=== PATIENT | male | born 1960 | race American Indian/Alaskan Native ===

== ENCOUNTER 2021-09-22 09:50 | Outpatient (CLI) | payer BC | END 2021-09-22 09:51 | disposition home or self-care (01) | LOC: LAB 09:50 | PROVIDERS: ATTEND Internal Medicine | DX: E78.5 Hyperlipidemia, unspecified (principal); E11.65 Type 2 diabetes mellitus with hyperglycemia | CPT/HCPCS: 36415; 83036 ==

== ENCOUNTER 2022-01-30 11:11 | Observation (INO) | payer BC ==
[2022-01-30] MEDS ORDERED: NITROGLYCERIN 0.4 MG TAB SUBL SL ONE (11:50)
[2022-01-30] MEDS: NITROGLYCERIN 0.4 MG TAB SUBL SL SCH ×3 (11:57→13:17)
[2022-01-30] MEDS ORDERED: ASPIRIN 325 MG TAB PO SCH (12:00)
[2022-01-30 12:01] LABS: Basophils % (Auto) 0.4 % (0.0-1.8); Eosinophils # (Auto) 0.2 K/mm3 (0.0-0.4); Eosinophils % (Auto) 1.7 % (0.0-4.3); Hemoglobin 12.9 gm/dl (11.8-15.2); Lymphocytes # (Auto) 0.8 K/mm3 (1.2-5.4); Lymphocytes % (Auto) 6.5 % (13.4-35.0); Mean Corpuscular HGB Conc 33 % (32-34); Mean Corpuscular Volume 78 fl (84-94); Monocytes # (Auto) 1.6 K/mm3 (0.0-0.8); Monocytes % (Auto) 13.6 % (0.0-7.3); Platelet Count 228 K/mm3 (140-440); Red Blood Count 4.99 M/mm3 (3.65-5.03); Red Cell Distribution Width 14.8 % (13.2-15.2)
--- NOTE | 2022-01-30 12:10 | XRay Report ---
CHEST 1 VIEW 01/30/2022 10:45 AM INDICATION / CLINICAL INFORMATION: Chest Pain. COMPARISON: None available. FINDINGS: SUPPORT DEVICES: None. HEART / MEDIASTINUM: No significant abnormality. LUNGS / PLEURA: No significant pulmonary or pleural abnormality. No pneumothorax. ADDITIONAL FINDINGS: No significant additional findings. IMPRESSION: 1. No acute findings. Signer Name: Chris Garcia MD Signed: 01/30/2022 11:53 AM Workstation Name: [id number]
[2022-01-30 12:18] LABS: INR 1.03 (0.87-1.13)
[2022-01-30 12:22] LABS: Alanine Aminotransferase 24 units/L (7-56); Albumin 4.3 g/dL (3.9-5); BUN/Creatinine Ratio 12; Blood Urea Nitrogen 18 mg/dL (9-20); Calcium 9.4 mg/dL (8.4-10.2); Hemolysis Index 8
[2022-01-30] MEDS ORDERED: POTASSIUM CHLORIDE ER 20 MEQ TAB PO ONE (12:26)
--- NOTE | 2022-01-30 12:40 | Emergency Department Report ---
ED Chest Pain HPI - General Stated Complaint: CHEST PAIN Time Seen by Provider: 01/30/22 11:23 Source: patient Mode of arrival: Ambulatory Limitations: No Limitations - History of Present Illness Initial Comments: 61-year-old male with a past medical history of obesity, hypertension, and type 2 diabetes presents to the hospital complaints of chest pain and fatigue since waking up this morning. Pain was initially moderate and intermittent left-sided chest with radiation to the left upper arm. Pain then became more persistent with increased fatigue and inability to concentrate while working. Patient denies nausea, vomiting, diaphoresis, or shortness of breath. He also denies history of PE/DVT, calf tenderness, leg edema, or recent travel. Been compliant with medications. He denies elevated cholesterol, smoking, or family history of CAD before age 65. Patient/stress test was greater than 10 years ago. 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 PMD: Dr. Mann Patient states his current medications include nifedipine and metformin - Related Data Allergies Allergy/AdvReac Type Severity Reaction Status Date / Time No Known Allergies Allergy Verified 01/30/22 11:46 Heart Score - HEART Score History: Moderately suspicious EKG: Non-specific Age: 45-65 Risk factors: > 3 risk factors or hx of atherosclerotic disease Troponin: < normal limit HEART Score: 5 - EKG Read Time Time EKG Completed: 11:17 EKG Read Time: 11:21 ED Review of Systems ROS: Stated complaint: CHEST PAIN Other details as noted in HPI ED Past Medical Hx - Past Medical History Previous Medical History?: Yes Hx Hypertension: Yes - Social History Smoking Status: Never Smoker Substance Use Type: None ED Course Vital Signs 01/30/22 01/30/22 01/30/22 11:39 11:57 12:03 Temperature 99.6 F Pulse Rate 73 90 90 Respiratory 18 Rate Blood Pressure 180/90 170/90 O2 Sat by Pulse 96 Oximetry - Reevaluation(s) Reevaluation #1: 01/30/22 12:31 Patient was treated with nitroglycerin and reports his pain decreased to 0 after receiving 2 sublingual nitroglycerin 01/30/22 13:11 pt updated regarding results, plan for cardiology consultation, and admission. He is currently pain-free - Consultations Consultation #1: 01/30/22 13:05 Case evelio Gooden NP with [facility], will consult SHARMILA score - Sharmila Score Age > 65: (0) No Aspirin use within the Past 7 Days: (0) No 3 or more CAD Risk Factors: (1) Yes 2 or more Angina events in past 24 hrs: (1) Yes Known CAD with more than 50% Stenosis: (0) No Elevated Cardiac Markers: (0) No ST Deviation Greater than 0.5mm: (0) No SHARMILA Score: 2 ED Medical Decision Making - Lab Data Result diagrams: 01/30/22 11:41 01/30/22 11:41 Lab Results 01/30/22 01/30/22 01/30/22 Range/Units 11:41 11:41 11:41 WBC 11.7 H (4.5-11.0) K/mm3 RBC 4.99 (3.65-5.03) M/mm3 Hgb 12.9 (11.8-15.2) gm/dl Hct 39.0 (35.5-45.6) % MCV 78 L (84-94) fl MCH 26 L (28-32) pg MCHC 33 (32-34) % RDW 14.8 (13.2-15.2) % Plt Count 228 (140-440) K/mm3 Lymph % (Auto) 6.5 L (13.4-35.0) % [place] % (Auto) 13.6 H (0.0-7.3) % Eos % (Auto) 1.7 (0.0-4.3) % Baso % (Auto) 0.4 (0.0-1.8) % Lymph # (Auto) 0.8 L (1.2-5.4) K/mm3 [place] # (Auto) 1.6 H (0.0-0.8) K/mm3 Eos # (Auto) 0.2 (0.0-0.4) K/mm3 Baso # (Auto) 0.0 (0.0-0.1) K/mm3 Seg Neutrophils % 77.8 H (40.0-70.0) % Seg Neutrophils # 9.1 H (1.8-7.7) K/mm3 PT 14.6 (12.2-14.9) Sec. INR 1.03 (0.87-1.13) APTT 30.0 (24.2-36.6) Sec. Sodium 143 (137-145) mmol/L Potassium 3.1 L (3.6-5.0) mmol/L Chloride 104.9 (98-107) mmol/L Carbon Dioxide 25 (22-30) mmol/L Anion Gap 16 mmol/L BUN 18 (9-20) mg/dL Creatinine 1.5 H (0.8-1.3) mg/dL Estimated GFR 58 ml/min BUN/Creatinine Ratio 12 % Glucose 194 H (75-100) mg/dL Calcium 9.4 (8.4-10.2) mg/dL Total Bilirubin 0.40 (0.1-1.2) mg/dL AST 24 (5-40) units/L ALT 24 (7-56) units/L Alkaline Phosphatase 95 (35-129) units/L Troponin T < 0.010 (0.00-0.029) ng/mL Total Protein 8.1 (6.3-8.2) g/dL Albumin 4.3 (3.9-5) g/dL Albumin/Globulin Ratio 1.1 % - EKG Data -: EKG Interpreted by Me (Previous inferior infarct) EKG shows normal: sinus rhythm, intervals (Prolonged TX interval 207), ST-T waves (Lateral T wave inversions) - EKG Data When compared to previous EKG there are: previous EKG unavailable - Radiology Data Radiology results: report reviewed CHEST 1 VIEW 01/30/2022 10:45 AM INDICATION / CLINICAL INFORMATION: Chest Pain. COMPARISON: None available. FINDINGS: SUPPORT DEVICES: None. HEART / MEDIASTINUM: No significant abnormality. LUNGS / PLEURA: No significant pulmonary or pleural abnormality. No pn eumothorax. ADDITIONAL FINDINGS: No significant additional findings. IMPRESSION: 1. No acute findings. - Medical Decision Making 61-year-old male presents to the hospital with several cardiac risk factors, chest pain, and abnormal EKG without previous for comparison. Pain relieved after aspirin and nitroglycerin x2. Troponin negative. Patient has not r eceived a stress test in greater than 10 years and has a heart score of 5. P.o. potassium provided for mild hypokalemia. Mild renal insufficiency noted. Case discussed with on-call psychiatric social worker with [facility] (pt to be evaluated by cards in ED) and patient will be admitted to the hospital for further cardiac evaluation. Critical Care Time: Yes Critical care time in (mins) excluding proc time.: 35 Critical care attestation.: If time is entered above; I have spent that time in minutes in the direct care of this critically ill patient, excluding procedure time. Critical Care Time: 35 Minutes of critical care time excluding procedures were used in the care of the patient. I came immediately to the bedside upon patient's arrival. = I discussed treatment plan with the nursing team members. I reviewed electronic record. Patient required multiple interventions and reassessments. Spoke with hospitalist and consultants for collaborative care ED Disposition Clinical Impression: Chest pain, HTN (hypertension), Diabetes, Hypokalemia, Renal insufficiency Disposition: 09 ADMITTED INPATIENT Is pt being admited?: Yes Does the pt Need Aspirin: Yes Condition: Stable Instructions: Diabetes Mellitus Type 2 in Adults (ED), Hypertension (ED) Referrals: PRIMARY CARE, [Primary Care Provider] - 3-5 Days Time of Disposition: 13:14
[2022-01-30] MEDS ORDERED: ACETAMINOPHEN 325 MG TAB PO PRN ×2 (13:15→19:12)
[2022-01-30] MEDS ORDERED: MORPHINE 2 MG/1 ML INJ IV PRN (13:15)
[2022-01-30] MEDS ORDERED: ONDANSETRON 4 MG/2 ML INJ IV PRN ×2 (13:15→19:12)
--- NOTE | 2022-01-30 15:32 | Consultation ---
History of Present Illness Consult date: 01/30/22 Requesting physician: SALLIE STORM History of present illness: Patient is a 61-year-old male with a past medical history of hypertension, diabetes, obesity, and obstructive sleep apnea who presents today with complaint of chest pain which started this morning. Patient reports that he woke up today and had left-sided intermittent chest pain which worsened as the day went on. Patient reports to the chest pain radiated to his left arm that was associated with shortness of breath and dyspnea on exertion which prompted him to be evaluated in the ED. Patient described the pain as a dull ache that was worsened with exertion and relieved after receiving nitroglycerin x2. Patient also reports bilateral lower extremity edema. Patient denies nausea, vomiting, diaphoresis, orthopnea, lightheadedness or palpitations. Patient is previously unknown to our practice. Cardiology is consulted for chest pain. Past History Past Medical History: diabetes, hypertension, hyperlipidemia, other (REDDY) Past Surgical History: Other (Eye surgery) Social history: Family history: cancer, diabetes Medications and Allergies Allergies Allergy/AdvReac Type Severity Reaction Status Date / Time No Known Allergies Allergy Verified 01/30/22 11:46 Active Meds: Active Medications Acetaminophen (Acetaminophen 325 Mg Tab) 650 mg PO Q4H PRN PRN Reason: Pain MILD(1-3)/Fever >100.5/ASIF Aspirin (Aspirin 81 Mg Tab Chew) 81 mg PO QDAY [facility] Atorvastatin Calcium (Atorvastatin 40 Mg Tab) 40 mg PO QHS СВЕТЛАНА Hydralazine HCl (Hydralazine 25 Mg Tab) 25 mg PO Q8HR СВЕТЛАНА Metoprolol Tartrate (Metoprolol Tartrate 50 Mg Tab) 50 mg PO BID СВЕТЛАНА Morphine Sulfate (Morphine 2 Mg/1 Ml Inj) 2 mg IV Q4H PRN PRN Reason: Pain, Moderate (4-6) Nifedipine (Nifedipine Xl 30 Mg Tab) 30 mg PO DAILY [facility]ТЛАНА Ondansetron HCl (Ondansetron 4 Mg/2 Ml Inj) 4 mg IV Q8H PRN PRN Reason: Nausea And Vomiting Sodium Chloride (Sodium Chloride 0.9% 10 Ml Flush Syringe) 10 ml IV BID СВЕТЛАНА Sodium Chloride (Sodium Chloride 0.9% 10 Ml Flush Syringe) 10 ml IV PRN PRN PRN Reason: LINE FLUSH Review of Systems Constitutional: no weight loss, no weight gain, no fever, no chills Ears, nose, mouth and throat: no sinus pressure, no sinus pain Cardiovascular: chest pain, shortness of breath, dyspnea on exertion, no orthopnea Respiratory: shortness of breath, dyspnea on exertion Gastrointestinal: no abdominal pain, no nausea, no vomiting Musculoskeletal: no neck stiffness, no neck pain Integumentary: no rash, no pruritis, no redness Neurological: no head injury, no transient paralysis Psychiatric: no anxiety, no memory loss Physical Examination Vital Signs Temp Pulse Resp Pulse Ox 99.6 F 73 18 96 01/30/22 11:39 01/30/22 11:39 01/30/22 11:39 01/30/22 11:39 General appearance: no acute distress HEENT: Positive: Normocephaly Neck: Positive: trachea midline Cardiac: Positive: Reg Rate and Rhythm Lungs: Positive: Normal Breath Sounds Neuro: Positive: Grossly Intact Abdomen: Positive: Soft, Active Bowel Sounds Skin: Negative: Rash, Suspicious Lesions, Ulceration Extremities: Present: upper extr. pulses, edema Results 01/30/22 11:41 01/30/22 11:41 Cardiac Enzymes 01/30/22 Range/Units 11:41 AST 24 (5-40) units/L Coagulation 01/30/22 Range/Units 11:41 PT 14.6 (12.2-14.9) Sec. INR 1.03 (0.87-1.13) APTT 30.0 (24.2-36.6) Sec. CBC 01/30/22 Range/Units 11:41 WBC 11.7 H (4.5-11.0) K/mm3 RBC 4.99 (3.65-5.03) M/mm3 Hgb 12.9 (11.8-15.2) gm/dl Hct 39.0 (35.5-45.6) % Plt Count 228 (140-440) K/mm3 Lymph # (Auto) 0.8 L (1.2-5.4) K/mm3 [place] # (Auto) 1.6 H (0.0-0.8) K/mm3 Eos # (Auto) 0.2 (0.0-0.4) K/mm3 Baso # (Auto) 0.0 (0.0-0.1) K/mm3 Comprehensive Metabolic Panel 01/30/22 Range/Units 11:41 Sodium 143 (137-145) mmol/L Potassium 3.1 L (3.6-5.0) mmol/L Chloride 104.9 (98-107) mmol/L Carbon Dioxide 25 (22-30) mmol/L BUN 18 (9-20) mg/dL Creatinine 1.5 H (0.8-1.3) mg/dL Glucose 194 H (75-100) mg/dL Calcium 9.4 (8.4-10.2) mg/dL AST 24 (5-40) units/L ALT 24 (7-56) units/L Alkaline Phosphatase 95 (35-129) units/L Total Protein 8.1 (6.3-8.2) g/dL Albumin 4.3 (3.9-5) g/dL - Imaging and Cardiology Echo: pending EKG interpretations - Telemetry EKG Rhythm: Sinus Rhythm - EKG Sinus rhythms and dysrhythmias: sinus rhythm Repolarization changes or abnormalities: nonspecific abnormality, ST segment, and/or T wave Assessment and Plan Patient is a 61-year-old male with a past medical history of hypertension, diabetes, obesity, and obstructive sleep apnea who presents today with complaint of chest pain which started this morning. Chest pain MAGI Hypertension Diabetes Obesity REDDY Reported outpatient medications: Nifedipine 30 mg p.o. daily, atorvastatin, valsartan 320 mg p.o. daily, hydrochlorothiazide 25 mg p.o. daily Plan: EKG shows sinus rhythm 84 with nonspecific IVCD and nonspecific T abnormalities. Troponin negative x2. Repeat cardiac enzymes pending. Patient currently chest pain-free at time of interview Will plan for stress test in the a.m. Patient to be n.p.o. after midnight Will initiate metoprolol 50 mg p.o. twice daily, aspirin, Lipitor Patient is hypertensive will initiate hydralazine 25 mg p.o. 3 times daily and resume outpatient nifedipine 30 mg p.o. daily Patient noted to have elevated creatinine. Patient denies any history of CKD. Will hold nephrotoxic agents including NATALYA or ARB or diuretics Primary team may wish to consider nephrology consult due to elevated creatinine if current renal function does not improve CXR negative however patient reports shortness of breath, bilateral lower extremity, and dyspnea on exertion. BNP pending Echo pending Plan of care discussed with patient and patient's who is at bedside. Patient and verbalized understanding and acknowledgment Patient seen in conjunction with Dr. Valdez who agrees with this plan of care - Patient Problems (1) REDDY (obstructive sleep apnea) Current Visit: Yes Status: Acute (2) Chest pain Current Visit: Yes Status: Acute (3) Diabetes Current Visit: Yes Status: Acute (4) HTN (hypertension) Current Visit: Yes Status: Acute (5) Hypokalemia Current Visit: Yes Status: Acute (6) Renal insufficiency Current Visit: Yes Status: Acute
[2022-01-30] MEDS: hydrALAZINE 25 MG TAB PO SCH ×2 (16:51→22:13)
[2022-01-30] MEDS: METOPROLOL TARTRATE 50 MG TAB PO SCH ×2 (16:51→22:13)
[2022-01-30] MEDS ORDERED: POTASSIUM CHLORIDE ER 20 MEQ TAB PO SCH (19:10)
[2022-01-30] MEDS ORDERED: METOCLOPRAMIDE 10 MG/2 ML INJ IV PRN (19:12)
[2022-01-30] MEDS ORDERED: HYDROmorphone 0.5 MG/0.5 ML INJ IV PRN (19:12)
[2022-01-30] MEDS ORDERED: oxyCODONE /ACETAMINOPHEN 5-325MG TAB PO PRN (19:12)
--- NOTE | 2022-01-30 19:12 | History and Physical Report ---
History of Present Illness Date of examination: 01/30/22 Date of admission: 01/30/22 13:15 Chief complaint: Chest pain since a.m. History of present illness: 41-year-old man with a history of hypertension and type 2 diabetes comes in for chest pain since a.m. Chest pain moderate and intermittent with radiation to the left upper extremity. No nausea vomiting or diaphoresis or shortness of breath. No palpitations. No exacerbating or relieving factors. Chest pain is about 6 on a scale of 1-10. - Past Medical History --Previous Medical History?: Yes --Hypertension: Yes -Past surgical history --No - Family history -- Htn - Social History --Smoking Status: Never Smoker --Substance Use Type: None Review of Systems ROS: Constitutional no weight loss or weight gain no fever or chills HEENT no sore throat no post nasal drip no diplopia Neck no neck stiffness no lymph gland enlargement Chest and lungs no shortness of breath cough or wheezing CVS chest pain since a.m. GI no nausea no vomiting no diarrhea Genitourinary system no dysuria no flank pain Musculoskeletal system no muscle pains no joint pains [employer] no syncope no seizures Skin no rash no itching Psychiatric no depression no homicidal or suicidal tendencies Hematologic no lymphedema or bruising Endocrine no polydipsia no polyuria no cold intolerance no heat intolerance Past History Past Medical History: diabetes, hypertension, hyperlipidemia, other (REDDY) Past Surgical History: Other (Eye surgery) Social history: Family history: cancer, diabetes Medications and Allergies Allergies Allergy/AdvReac Type Severity Reaction Status Date / Time No Known Allergies Allergy Verified 01/30/22 11:46 Active Meds: Active Medications Acetaminophen (Acetaminophen 325 Mg Tab) 650 mg PO Q4H PRN PRN Reason: Pain MILD(1-3)/Fever >100.5/ASIF Aspirin (Aspirin 81 Mg Tab Chew) 81 mg PO QDAY [facility] Atorvastatin Calcium (Atorvastatin 40 Mg Tab) 40 mg PO QHS [facility] Hydralazine HCl (Hydralazine 25 Mg Tab) 25 mg PO Q8HR [facility] Last Admin: 01/30/22 16:51 Dose: 25 mg Metoprolol Tartrate (Metoprolol Tartrate 50 Mg Tab) 50 mg PO BID [facility] Last Admin: 01/30/22 16:51 Dose: 50 mg Morphine Sulfate (Morphine 2 Mg/1 Ml Inj) 2 mg IV Q4H PRN PRN Reason: Pain, Moderate (4-6) Nifedipine (Nifedipine Xl 30 Mg Tab) 30 mg PO DAILY [facility] Ondansetron HCl (Ondansetron 4 Mg/2 Ml Inj) 4 mg IV Q8H PRN PRN Reason: Nausea And Vomiting Potassium Chloride (Potassium Chloride Er 20 Meq Tab) 40 meq PO ONCE ONE Stop: 01/30/22 19:11 Sodium Chloride (Sodium Chloride 0.9% 10 Ml Flush Syringe) 10 ml IV BID [facility] Last Admin: 01/30/22 16:51 Dose: 10 ml Sodium Chloride (Sodium Chloride 0.9% 10 Ml Flush Syringe) 10 ml IV PRN PRN PRN Reason: LINE FLUSH Exam - Constitutional Vitals: Temp Pulse Resp BP Pulse Ox 99.6 F 75 20 165/90 95 01/30/22 11:39 01/30/22 16:50 01/30/22 16:50 01/30/22 16:50 01/30/22 16:50 General appearance: Present: no acute distress, well-nourished - EENT Eyes: Present: PERRL ENT: hearing intact, clear oral mucosa - Neck Neck: Present: supple, normal ROM - Respiratory Respiratory effort: normal Respiratory: bilateral: CTA - Cardiovascular Heart rate: 78 Rhythm: regular Heart Sounds: Present: S1 & S2. Absent: rub, click - Extremities Extremities: no ischemia, pulses symmetrical, No edema Peripheral Pulses: within normal limits - Abdominal General gastrointestinal: Present: soft, non-tender, non-distended, normal bowel sounds Male genitourinary: Present: normal - Integumentary Integumentary: Present: clear, warm, dry - Musculoskeletal Musculoskeletal: gait normal, strength equal bilaterally - Psychiatric Psychiatric: appropriate mood/affect, intact judgment & insight - Neurologic Neurologic: CNII-XII intact, moves all extremities - Allied Health Allied health notes reviewed: nursing, case management HEART Score - HEART Score EKG: Non-specific Age: 45-65 Risk factors: > 3 risk factors or hx of atherosclerotic disease Troponin: Troponin T < 0.010 ng/mL (0.00-0.029) 01/30/22 13:04 Troponin: < normal limit - Critical Actions Critical Actions: 4-6 pts:12-16.6% risk of adverse cardiac event. Should be admitted Results - Labs CBC & Chem 7: 07/25/22 11:41 01/30/22 11:41 Labs: Laboratory Last Values WBC 11.7 K/mm3 (4.5-11.0) H 01/30/22 11:41 RBC 4.99 M/mm3 (3.65-5.03) 01/30/22 11:41 Hgb 12.9 gm/dl (11.8-15.2) 01/30/22 11:41 Hct 39.0 % (35.5-45.6) 01/30/22 11:41 MCV 78 fl (84-94) L 01/30/22 11:41 MCH 26 pg (28-32) L 01/30/22 11:41 MCHC 33 % (32-34) 01/30/22 11:41 RDW 14.8 % (13.2-15.2) 01/30/22 11:41 Plt Count 228 K/mm3 (140-440) 01/30/22 11:41 Lymph % (Auto) 6.5 % (13.4-35.0) L 01/30/22 11:41 [place] % (Auto) 13.6 % (0.0-7.3) H 01/30/22 11:41 Eos % (Auto) 1.7 % (0.0-4.3) 01/30/22 11:41 Baso % (Auto) 0.4 % (0.0-1.8) 01/30/22 11:41 Lymph # (Auto) 0.8 K/mm3 (1.2-5.4) L 01/30/22 11:41 [place] # (Auto) 1.6 K/mm3 (0.0-0.8) H 01/30/22 11:41 Eos # (Auto) 0.2 K/mm3 (0.0-0.4) 01/30/22 11:41 Baso # (Auto) 0.0 K/mm3 (0.0-0.1) 01/30/22 11:41 Seg Neutrophils % 77.8 % (40.0-70.0) H 01/30/22 11:41 Seg Neutrophils # 9.1 K/mm3 (1.8-7.7) H 01/30/22 11:41 PT 14.6 Sec. (12.2-14.9) 01/30/22 11:41 INR 1.03 (0.87-1.13) 01/30/22 11:41 APTT 30.0 Sec. (24.2-36.6) 01/30/22 11:41 Sodium 143 mmol/L (137-145) 01/30/22 11:41 Potassium 3.1 mmol/L (3.6-5.0) L 01/30/22 11:41 Chloride 104.9 mmol/L (98-107) 01/30/22 11:41 Carbon Dioxide 25 mmol/L (22-30) 01/30/22 11:41 Anion Gap 16 mmol/L 01/30/22 11:41 BUN 18 mg/dL (9-20) 01/30/22 11:41 Creatinine 1.5 mg/dL (0.8-1.3) H 01/30/22 11:41 Estimated GFR 58 ml/min 01/30/22 11:41 BUN/Creatinine Ratio 12 % 01/30/22 11:41 Glucose 194 mg/dL (75-100) H 01/30/22 11:41 Calcium 9.4 mg/dL (8.4-10.2) 01/30/22 11:41 Total Bilirubin 0.40 mg/dL (0.1-1.2) 01/30/22 11:41 AST 24 units/L (5-40) 01/30/22 11:41 ALT 24 units/L (7-56) 01/30/22 11:41 Alkaline Phosphatase 95 units/L (35-129) 01/30/22 11:41 Troponin T < 0.010 ng/mL (0.00-0.029) 01/30/22 13:04 Total Protein 8.1 g/dL (6.3-8.2) 01/30/22 11:41 Albumin 4.3 g/dL (3.9-5) 01/30/22 11:41 Albumin/Globulin Ratio 1.1 % 01/30/22 11:41 Short CBC 01/30/22 Range/Units 11:41 WBC 11.7 H (4.5-11.0) K/mm3 Hgb 12.9 (11.8-15.2) gm/dl Hct 39.0 (35.5-45.6) % Plt Count 228 (140-440) K/mm3 BMP 01/30/22 11:41 Sodium 143 Potassium 3.1 L Chloride 104.9 Carbon Dioxide 25 BUN 18 Creatinine 1.5 H Glucose 194 H Calcium 9.4 Cardiac Enzymes 01/30/22 01/30/22 01/30/22 Range/Units 11:41 13:04 20:21 Troponin T < 0.010 < 0.010 0.011 (0.00-0.029) ng/mL 01/30/22 Range/Units 23:26 Troponin T < 0.010 (0.00-0.029) ng/mL Liver Function 01/30/22 Range/Units 11:41 Total Bilirubin 0.40 (0.1-1.2) mg/dL AST 24 (5-40) units/L ALT 24 (7-56) units/L Alkaline Phosphatase 95 (35-129) units/L Albumin 4.3 (3.9-5) g/dL - Imaging and Cardiology EKG: report reviewed (Sinus rhythm no acute ST-T wave changes) Chest x-ray: report reviewed (No acute findings) Assessment and Plan Advance Directives: Yes (Full code) VTE prophylaxis?: Chemical Plan of care discussed with patient/family: Yes - Patient Problems (1) Acute coronary syndrome Current Visit: Yes Status: Acute Plan to address problem: Serial troponins and Lexiscan in the morning Cardiology consult requested (2) Hypokalemia Current Visit: Yes Status: Acute Plan to address problem: Supplemented (3) Diabetes Current Visit: Yes Status: Chronic Qualifiers: Diabetes mellitus type: type 2 Plan to address problem: Continue hypoglycemics and coverage Check A1c (4) REDDY (obstructive sleep apnea) Current Visit: Yes Status: Chronic Plan to address problem: CPAP nightly (5) HTN (hypertension) Current Visit: Yes Status: Chronic Qualifiers: Hypertension type: primary hypertension Qualified Code(s): I10 - Essential (primary) hypertension Plan to address problem: Continue antihypertensives and adjust medications (6) DVT prophylaxis Current Visit: Yes Status: Acute Plan to address problem: On heparin and GI prophylaxis (7) Advance care planning Current Visit: Yes Status: Acute Plan to address problem: Disease education conducted, care plan Discussed. Diagnosis discussed and prognosis discussed. Patient acknowledged understanding with care plan +30 minutes.
[2022-01-30] MEDS: FAMOTIDINE 20 MG/2 ML INJ IV SCH (22:14)
[2022-01-31] MEDS ORDERED: hydrALAZINE 20 MG/1 ML INJ IV PRN (04:27)
[2022-01-31] MEDS ORDERED: POTASSIUM CHLORIDE ER 20 MEQ TAB PO NR (06:42)
[2022-01-31] MEDS ORDERED: REGADENOSON 0.4 MG/5 ML INJ IV ONE (07:05)
[2022-01-31 07:15] LABS: Albumin 3.9 g/dL (3.9-5); Calcium 8.9 mg/dL (8.4-10.2)
[2022-01-31] MEDS: hydrALAZINE 25 MG TAB PO SCH (07:50)
--- NOTE | 2022-01-31 09:38 | Electrocardiograph Report ---
[facility] Test Date: 2022-01-30 Test Time: 11:17:27 Pat Name: RANULFO SAXENA Department: Room: A454 Gender: M Investigations Manager: GP : 1960 Requested By: SALLIE STORM Order Number: [id number] Reading MD: Trell Valdez Measurements Intervals [place] Rate: 84 P: 60 WI: 207 QRS: -61 QRSD: 115 T: 172 QT: 381 QTc: 452 Interpretive Statements Sinus rhythm Borderline prolonged [place] interval Probable left atrial enlargement Nonspecific IVCD with LAD Inferior infarct, old Nonspecific T abnormalities, lateral leads No previous ECG available for comparison Electronically Signed On 01-31-2022 9:38:38 EDT by Trell Valdez
--- NOTE | 2022-01-31 09:42 | Electrocardiograph Report ---
[facility] Test Date: 2022-01-31 Test Time: 06:58:25 Pat Name: RANULFO SAXENA Department: Room: A454 1 Gender: M Physician Executive: NAN : 1960 Requested By: SALLIE STORM Order Number: [id number] Reading MD: Trell Valdez Measurements Intervals [place] Rate: 66 P: 46 AR: 222 QRS: -79 QRSD: 98 T: 122 QT: 415 QTc: 436 Interpretive Statements Sinus rhythm Prolonged AR interval Left anterior fascicular block Abnormal T, consider ischemia, lateral leads Compared to ECG 01/30/2022 11:17:27 Left anterior fascicular block now present Possible ischemia now present Intraventricular conduction delay no longer present Myocardial infarct finding no longer present T-wave abnormality still present Electronically Signed On 01-31-2022 9:42:25 EDT by Trell Valdez
[2022-01-31] MEDS ORDERED: ASPIRIN 81 MG TAB CHEW PO SCH (10:00)
[2022-01-31] MEDS ORDERED: NIFEdipine XL 30 MG TAB PO SCH (10:00)
[2022-01-31] MEDS: FAMOTIDINE 20 MG/2 ML INJ IV SCH (10:04)
[2022-01-31] MEDS: METOPROLOL TARTRATE 50 MG TAB PO SCH (10:04)
--- NOTE | 2022-01-31 10:43 | Electrocardiograph Report ---
[facility] Test Date: 2022-01-31 Test Time: 09:28:52 Pat Name: RANULFO SAXENA Department: Room: A454 1 Gender: M Inspector Penetrant: NAN : 1960 Requested By: SALLIE STORM Order Number: [id number] Reading MD: Trell Valdez Measurements Intervals [place] Rate: 73 P: 51 [place]: 219 QRS: -77 QRSD: 106 T: 103 QT: 412 QTc: 455 Interpretive Statements Sinus rhythm Prolonged [place] interval Incomplete RBBB and LAFB Abnormal T, consider ischemia, lateral leads Electronically Signed On 01-31-2022 10:43:40 EDT by Trell Valdez
--- NOTE | 2022-01-31 11:44 | Progress Note ---
Assessment and Plan Patient is a 61-year-old male with a past medical history of hypertension, diabetes, obesity, and obstructive sleep apnea who presents today with complaint of chest pain which started this morning. Chest pain MAGI Hypertension Diabetes Obesity REDDY Reported outpatient medications: Nifedipine 30 mg p.o. daily, atorvastatin, valsartan 320 mg p.o. daily, hydrochlorothiazide 25 mg p.o. daily Echo 01/30/2022-EF 60 to 65%. Mild concentric LVH right ventricle not well. No pericardial effusion Plan: EKG shows sinus rhythm 84 with nonspecific IVCD and nonspecific T abnormalities. Troponin negative x4. Patient chest pain-free. AMI ruled out Patient for Lexiscan MPI stress test this a.m. Technically difficult study but no signs of ischemia. See report for full details Continue metoprolol 50 mg p.o. twice daily, aspirin, Lipitor, hydralazine 25 mg p.o. 3 times daily , nifedipine 30 mg p.o. daily Patient noted to have elevated creatinine. Patient denies any history of CKD. Will hold nephrotoxic agents including NATALYA or ARB or diuretics Primary team may wish to consider nephrology consult or outpatient nephrology follow due to elevated creatinine BNP negative Plan of care discussed with patient and patient's who is at bedside. Patient and verbalized understanding and acknowledgment Cardiac status otherwise stable for discharge Patient to follow-up with Dr. Phyllis Valdez, [facility] soil fertility extension specialist, on 03/14/2022 at 2:30 PM in our [place] phone #[phone] Patient seen in conjunction with Dr. Valdez who agrees with this plan of care - Patient Problems (1) REDDY (obstructive sleep apnea) Current Visit: Yes Status: Chronic (2) Chest pain Current Visit: Yes Status: Acute (3) Diabetes Current Visit: Yes Status: Chronic Qualifiers: Diabetes mellitus type: type 2 (4) HTN (hypertension) Current Visit: Yes Status: Chronic Qualifiers: Hypertension type: primary hypertension Qualified Code(s): I10 - Essential (primary) hypertension (5) Hypokalemia Current Visit: Yes Status: Acute (6) Renal insufficiency Current Visit: Yes Status: Acute Subjective Date of service: 01/31/22 Principal diagnosis: Chest pain Interval history: Patient for Lexiscan MPI stress test this a.m. Patient reports being chest pain-free Sinus 70s on monitor with no events Objective Vital Signs Temp Pulse Resp BP BP Pulse Ox 01/31/22 08:55 180/86 01/31/22 08:54 173/89 01/31/22 08:53 170/84 01/31/22 08:52 162/81 01/31/22 08:51 196/81 01/31/22 08:26 191/97 01/31/22 08:01 96 01/31/22 07:47 98.9 F 71 169/82 92 01/31/22 05:16 68 198/93 01/31/22 03:59 98.3 F 68 18 190/93 91 01/30/22 23:54 68 01/30/22 23:48 99.5 F 68 20 180/89 94 01/30/22 22:13 65 131/57 01/30/22 22:00 70 96 01/30/22 20:33 99.9 F H 67 16 162/86 94 01/30/22 19:42 97.8 F 65 20 131/57 96 01/30/22 16:50 75 20 165/90 95 01/30/22 12:03 90 170/90 01/30/22 11:57 90 180/90 - Physical Examination General: No Apparent Distress HEENT: Positive: Normocephaly Neck: Positive: trachea midline Cardiac: Positive: Reg Rate and Rhythm Lungs: Positive: Normal Breath Sounds Neuro: Positive: Grossly Intact Abdomen: Positive: Soft, Active Bowel Sounds Skin: Negative: Rash, Suspicious Lesions, Ulceration Extremities: Present: upper extr. pulses, edema - Labs and Meds Cardiac Enzymes 01/30/22 01/31/22 Range/Units 11:41 05:18 AST 24 37 (5-40) units/L Coagulation 01/30/22 Range/Units 11:41 PT 14.6 (12.2-14.9) Sec. INR 1.03 (0.87-1.13) APTT 30.0 (24.2-36.6) Sec. CBC 01/30/22 Range/Units 11:41 WBC 11.7 H (4.5-11.0) K/mm3 RBC 4.99 (3.65-5.03) M/mm3 Hgb 12.9 (11.8-15.2) gm/dl Hct 39.0 (35.5-45.6) % Plt Count 228 (140-440) K/mm3 Lymph # (Auto) 0.8 L (1.2-5.4) K/mm3 [place] # (Auto) 1.6 H (0.0-0.8) K/mm3 Eos # (Auto) 0.2 (0.0-0.4) K/mm3 Baso # (Auto) 0.0 (0.0-0.1) K/mm3 Comprehensive Metabolic Panel 01/30/22 01/31/22 Range/Units 11:41 05:18 Sodium 143 139 (137-145) mmol/L Potassium 3.1 L 3.3 L (3.6-5.0) mmol/L Chloride 104.9 104.2 (98-107) mmol/L Carbon Dioxide 25 23 (22-30) mmol/L BUN 18 17 (9-20) mg/dL Creatinine 1.5 H 1.5 H (0.8-1.3) mg/dL Glucose 194 H 134 H (75-100) mg/dL Calcium 9.4 8.9 (8.4-10.2) mg/dL AST 24 37 (5-40) units/L ALT 24 37 (7-56) units/L Alkaline Phosphatase 95 84 (35-129) units/L Total Protein 8.1 7.7 (6.3-8.2) g/dL Albumin 4.3 3.9 (3.9-5) g/dL - Imaging and Cardiology EKG: report reviewed (Sinus rhythm no acute ST-T wave changes) Nuclear stress test: pending Echo: report reviewed - Telemetry EKG Rhythm: Sinus Rhythm - EKG Sinus rhythms and dysrhythmias: sinus rhythm Repolarization changes or abnormalities: nonspecific abnormality, ST segment, and/or T wave
[2022-01-31 12:22] VITALS: BP 170/85
--- NOTE | 2022-01-31 13:20 | Discharge Summary ---
Providers - Providers Date of Admission: 01/30/22 13:15 Date of discharge: 01/31/22 Attending physician: BONNIE WHITE MD 01/30/22 13:09 Consult to Physician [CONS] Urgent Comment: Consulting Provider: SERGIO OLSEN Physician Instructions: Reason For Exam: chest pain Primary care physician: [employer] Hospitalization Reason for admission: Acute chest pain Condition: Stable Pertinent studies: Reviewed. Procedures: Myocardial perfusion scan Hospital course: Patient is a 61-year-old male past medical history of hypertension, noninsulin- dependent type 2 diabetes mellitus, morbid obesity, and obstructive sleep apnea who presented to the ED with complaints of chest pain that had started previously morning. Patient endorsed having left-sided intermittent chest pain that worsened as the day progressed. Patient reported having chest pain that radiated to his left arm in addition to being associated with shortness of breath and dyspnea on exertion. Patient's pain relieved in the ED after receiving nitroglycerin x2. In the ED, patient was found to be hypertensive but otherwise hemodynamically stable. Cardiology was consulted for further management. Patient underwent myocardial perfusion scan that was found to be un remarkable in regards to reversible ischemia. Patient also had a TTE (01/30/2022) revealing EF 60-65% with normal-sized LV, normal LV systolic function, mild concentric LVH, normal LA, normal RA. Patient was reinitiated on his antihypertensives. Patient will follow with cardiology (Dr. Phyllis Valdez) on 03/14/2022 at 2:30 PM in the [place] location. Patient is medically clear for discharge. Disposition: 01 HOME / SELF CARE / HOMELESS Final Discharge Diagnosis (Prints w/discharge instructions): Acute chest pain, CKD stage III, hypertension, noninsulin-dependent type 2 diabetes mellitus, obstructive sleep apnea, morbid obesity Time spent for discharge: 45 min Core Measure Documentation - Palliative Care Palliative Care/ Comfort Measures: Not Applicable - Core Measures Any of the following diagnoses?: none Exam - Constitutional Vitals: Temp Pulse Resp BP Pulse Ox 98.0 F 64 18 170/85 92 01/31/22 11:41 01/31/22 11:41 01/31/22 03:59 01/31/22 11:41 01/31/22 11:41 General appearance: Present: no acute distress, well-nourished, obese - EENT Eyes: Present: PERRL, EOM intact ENT: hearing intact, clear oral mucosa, dentition normal - Neck Neck: Present: supple, normal ROM - Respiratory Respiratory effort: normal Respiratory: bilateral: CTA - Cardiovascular Rhythm: regular Heart Sounds: Present: S1 & S2 - Extremities Extremities: no ischemia, pulses intact, pulses symmetrical, No edema, normal temperature, normal color, Full ROM Peripheral Pulses: within normal limits - Abdominal General gastrointestinal: Present: soft, non-tender, non-distended, normal bowel sounds Male genitourinary: Present: deferred - Rectal Rectal Exam: deferred - Integumentary Integumentary: Present: clear, warm, dry - Musculoskeletal Musculoskeletal: strength equal bilaterally - Psychiatric Psychiatric: appropriate mood/affect, intact judgment & insight, memory intact, cooperative - Neurologic Neurologic: CNII-XII intact, moves all extremities - Allied Health Allied health notes reviewed: nursing Plan Activity: advance as tolerated Diet: low salt, diabetic Additional Instructions: Patient is a 61-year-old male past medical history of hypertension, noninsulin-dependent type 2 diabetes mellitus, morbid obesity, and obstructive sleep apnea who presented to the ED with complaints of chest pain that had started previously morning. Patient endorsed having left-sided intermittent chest pain that worsened as the day progressed. Patient reported having chest pain that radiated to his left arm in addition to being associated with shortness of breath and dyspnea on exertion. Patient's pain relieved in the ED after receiving nitroglycerin x2. In the ED, patient was found to be hypertensive but otherwise hemodynamically stable. Cardiology was consulted for further management. Patient underwent myocardial perfusion scan that was found to be unremarkable in regards to reversible ischemia. Patient also had a TTE (01/30/2022) revealing EF 60-65% with normal-sized LV, normal LV systolic function, mild concentric LVH, normal LA, normal RA. Patient was reinitiated on his antihypertensives. Patient will follow with cardiology (Dr. Phyllis Valdez) on 03/14/2022 at 2:30 PM in the [place] location. Patient is medically clear for discharge. Care Plan Goals: Patient is medically clear for discharge. Assessment: Patient is a 61-year-old male past medical history of hypertension, noninsulin- dependent type 2 diabetes mellitus, morbid obesity, and obstructive sleep apnea who presented to the ED with complaints of chest pain that had started previously morning. Patient endorsed having left-sided intermittent chest pain that worsened as the day progressed. Patient reported having chest pain that radiated to his left arm in addition to being associated with shortness of breath and dyspnea on exertion. Patient's pain relieved in the ED after receiving nitroglycerin x2. In the ED, patient was found to be hypertensive but otherwise hemodynamically stable. Cardiology was consulted for further management. Patient underwent myocardial perfusion scan that was found to be unremarkable in regards to reversible ischemia. Patient also had a TTE (01/30/2022) revealing EF 60-65% with normal-sized LV, normal LV systolic function, mild concentric LVH, normal LA, normal RA. Patient was reinitiated on his antihypertensives. Patient will follow with cardiology (Dr. Phyllis Valdez) on 03/14/2022 at 2:30 PM in the [place] location. Patient is medically clear for discharge. Follow up with: PRIMARY CAREMD [Primary Care Provider] - 3-5 Days NIA VALDEZ MD [Staff Physician] - 03/14/22 2:30 pm Forms: Work/School Release Form Prescriptions: AtorvaSTATin [Lipitor] 40 mg PO QHS #30 tablet hydrALAZINE [Apresoline TAB] 25 mg PO Q8HR #90 tablet Aspirin [Aspirin BABY CHEW TAB] 81 mg PO QDAY #30 tab.chew Metoprolol [Lopressor TAB] 50 mg PO BID #60 tablet NIFEdipine XL [Procardia Xl] 30 mg PO DAILY #30 tablet
[2022-01-31] MEDS ORDERED: FAMOTIDINE 20 MG TAB PO SCH (22:00)
--- NOTE | 2022-02-02 10:42 | Treadmill Report ---
DATE OF SERVICE: 01/31/2022 NUCLEAR PERFUSION SCAN REFERRING PHYSICIAN: [facility] bird. PROTOCOL: The patient was assessed in postoperative state, given 10 mCi of technetium at rest. The patient had rest imaging. At peak stress, the patient given 26 mCi technetium. Shortly thereafter, the patient had stress imaging. Raw imaging reveals technically difficult study due to GI artifact and body habitus. Grossly, there does not appear to be a significant fixed or reversible perfusion defect suggestive of prior infarction or ischemia. Gated wall motion reveals normal systolic thickening, calculated ejection fraction of 55%. No TID. CONCLUSIONS: * Technically difficult study, but grossly probably normal without any convincing evidence of ischemia or prior infarction. * Normal left ventricular systolic performance without evidence of stress-induced segmental wall motion abnormalities or transient ischemic dilatation. TID: [id number] RECEIPT: [id number] STU/MAISHA
== END 2022-01-31 14:54 | disposition home or self-care (01) ==
LOC: ED 11:11 → INTOOBSV 13:15 → 4A 13:15
PROVIDERS: ADMIT Internal Medicine; ATTEND Student in an Organized Health Care Education/Training Program
DX: R07.89 Other chest pain (principal); N17.9 Acute kidney failure, unspecified; I12.9 Hypertensive chronic kidney disease with stage 1 through stage 4 chronic kidney disease, or unspecified chronic kidney disease; N18.30 Chronic kidney disease, stage 3 unspecified; E11.22 Type 2 diabetes mellitus with diabetic chronic kidney disease; I24.9 Acute ischemic heart disease, unspecified; E87.6 Hypokalemia; G47.33 Obstructive sleep apnea (adult) (pediatric); E66.01 Morbid (severe) obesity due to excess calories; N28.9 Disorder of kidney and ureter, unspecified; Z79.899 Other long term (current) drug therapy; Z98.890 Other specified postprocedural states; Z79.82 Long term (current) use of aspirin; Z68.35 Body mass index [BMI] 35.0-35.9, adult
CPT/HCPCS: 36415; 71045; 78452; 80053; 83880; 84484; 85025; 85610; 85730; 93005; 93017; 96374; 96375; 96376; 99291; A9502; C8929; G0378; J0360; J2785; J3490; 93306

== ENCOUNTER 2022-03-09 13:07 | Outpatient (CLI) | payer BC ==
--- NOTE | 2022-03-09 14:44 | Vascular Lab Report ---
DUPLEX DOPPLER LOWER EXTREMITY VEINS, LEFT INDICATION: EDEMA. TECHNIQUE: Duplex doppler imaging was performed through the veins of the left lower extremity using venous compression and other maneuvers. COMPARISON: No relevant prior imaging study available. FINDINGS: Left Common femoral vein: Negative. Left Superficial femoral vein: Negative. Left Popliteal vein: Negative. Left Calf veins: Negative. Additional findings: There is a moderate popliteal cyst measuring 4.1 x 1.5 x 0.7 cm. IMPRESSION: No sonographic evidence for DVT in the left lower extremity. Popliteal cyst Signer Name: Cornelio Saha Jr, MD Signed: 03/09/2022 2:40 PM Workstation Name: [id number]
--- NOTE | 2022-03-09 16:41 | Ultrasound Report ---
US extremity nonvascular LT INDICATION / CLINICAL INFORMATION: R60.9. Calf popping sensation, rule out calf muscle tear. COMPARISON: None available. TECHNIQUE: Limited grayscale and color doppler imaging of the left calf area of concern. FINDINGS: Mild soft tissue edema noted in the calf. There is no evidence of soft tissue mass, fluid collection, or other significant abnormality. No evidence of muscle tear. IMPRESSION: 1. Mild soft tissue edema. Otherwise, no significant abnormality. Scribed by: Pat Kimball RDMS, JET, OSVALDO Scribed: 03/09/2022 2:44 PM I have reviewed the images, agree with this report, and edited this report as needed. Signer Name: Stephen Tellez MD Signed: 03/09/2022 4:37 PM Workstation Name: [id number]
== END 2022-03-09 13:08 | disposition home or self-care (01) ==
LOC: US 13:07
PROVIDERS: ATTEND Internal Medicine
DX: M71.22 Synovial cyst of popliteal space [Baker], left knee (principal); R60.9 Edema, unspecified